=== PATIENT | male | born 1985 | race American Indian/Alaskan Native ===

== ENCOUNTER 2017-06-12 16:14 | Emergency (ER) | payer OTHER ==
[2017-06-12 16:34] VITALS: BP 132/91
[2017-06-12] MEDS ORDERED: TORADOL IM ONE (18:54)
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
== END 2017-06-12 19:25 | disposition home or self-care (01) ==
LOC: ED 16:14
DX: S39.012A Strain of muscle, fascia and tendon of lower back, initial encounter (principal); V49.49XA Driver injured in collision with other motor vehicles in traffic accident, initial encounter; Y93.9 Activity, unspecified; Y92.9 Unspecified place or not applicable; Y99.9 Unspecified external cause status
CPT/HCPCS: 72100; 96372; 99283; J1885